=== PATIENT | female | born 1965 | race Caucasian/White ===

== ENCOUNTER 2024-05-07 12:02 | Emergency (ER) | payer OTHER, SELFPAY ==
[2024-05-07 12:25] VITALS: BP 183/111
[2024-05-07 14:09] VITALS: BP 162/87
--- NOTE | 2024-05-07 15:12 | ED.GENMED ---
History of Present Illness
General
Chief Complaint: Cold/Flu/URI Symptoms
Source: patient and spouse
Exam Limitations: none
Time Seen by Provider: 05/07/24 14:27
History of Present Illness
History of Present Illness:
Patient diagnosed with RSV at primary care physician office 3 days ago, presents to ED secondary to persistent cough and shortness of breath, along with decreased appetite despite utilizing [id number]-qxknoth medications along with prescribed cough
medication. Denies fever or chills. Denies chest pain. Denies abdominal pain. Denies nausea, vomiting, or diarrhea. Denies sore throat. Denies dizziness. Denies headache. Denies rash. Patient's granddaughter was diagnosed with RSV 10 days
ago and was admitted at [facility].
Past History
Past History
ED Past Medical History: HTN
ED Past Surgical History: Cholecystectomy
Patient has exhibited threatening behavior?: No
Social History
Personal:
Living: with family
Employment: Employed
Review of Systems
Review of Systems
Allergies reviewed?: Yes
All Other Systems: ROS reviewed and negative except as documented in HPI and ROS
Constitutional: Reports no symptoms; Denies fever or chills
Respiratory: Reports cough and trouble breathing
Cardiac: Reports no symptoms
ABD/GI: Reports no symptoms; Denies vomiting or diarrhea
Musculoskeletal: Reports no symptoms
Skin: Reports no symptoms
Neurological: Reports no symptoms
Phy Exam
Physical Exam
Physical Exam:
Physical Exam
General: mild distress, not acutely ill. afebrile
Head: nc/at. eomi
Neck: supple. no meningeal signs.
Heart: s1/s2 regular rate and rhythm, no murmur. equal radial pulses.
Lungs: mild respiratory distress. clear bilaterally
Abdomen: normal bowel sounds. not tender.
Neuro: alert and oriented x 3. no focal neurological deficits
Skin: no rash
Psychiatric: well kept. interactive and cooperative
Extremities: no edema. no calf tenderness.
Course
Orders/Labs/Results
Orders:
Orders
05/07/24 12:04
EKG [Electrocardiogram (*1)] Urgent
Reason for Study: Tachycardia
EKG- Treatment ONCE
05/07/24 12:28
CR Chest - 2 Views Urgent
Comment:
Reason For Exam: cough/congestion
Vital Signs
Initial and Last Documented VS:
Initial Vital Signs
Temp Pulse Resp BP Pulse Ox
98.1 F 108 20 183/111 95
05/07/24 12:25 05/07/24 12:25 05/07/24 12:25 05/07/24 12:25 05/07/24 12:25
Last Documented Vital Signs
Temp Pulse Resp BP Pulse Ox
98.1 F 108 20 162/87 95
05/07/24 12:25 05/07/24 12:25 05/07/24 12:25 05/07/24 14:09 05/07/24 12:25
MDM/Problems Addressed
MDM/Problems Addressed:
History exam consistent with respiratory symptoms, secondary to recently confirmed RSV. Fortunately, patient is afebrile, hemodynamically stable, without acute respiratory distress. In addition, despite decreased appetite, clinically, patient is
without any evidence of dehydration. As such, patient will be discharged home in stable condition, to the care of her spouse, with recommendation to continue hydration at home along with symptomatic treatment via decongestant/cough medication.
Advised return to ED with worsening symptoms, i.e. increased work of breathing/vomiting/inability to eat/mental status change.
*Critical Care Note
Total Time (30-74mins, 75-104mins- exclusive of procedures): Not Applicable
ED Attending Note
-
Portions of this chart may have been created with voice recognition software.� Occasional wrong word or��sound alike� substitutions may have occurred due to the inherent limitations of voice recognition software.
Discharge Plan
Departure
Patient Disposition: Home (Routine Discharge)
Date of Disposition: 05/07/24
Time of Disposition: 15:13
Patient with high blood pressure during this ER visit?: Yes
Condition: Fair
Discharge Problem:
Respiratory syncytial virus (RSV)
Instructions: RSV in adults - Discharge instructions
Prescriptions:
No Action
cyclobenzaprine 10 MG tablet
10 mg PO HSPRN PRN (Reason: muscle spasms, tightness) Qty: 12 0RF
cyclobenzaprine 5 mg tablet
5 mg PO TID PRN (Reason: muscle spasm) Qty: 10 0RF
lidocaine [Lidoderm] 5 % adhesive patch,medicated
1 patch topical DAILY Qty: 15 0RF
Referrals:
Daniel Huertas, DO [Family Provider] -
Activity Restrictions/Additional Instructions:
As discussed, please follow-up with your primary care physician with any further concerns.
Interventions
Interventions:
*Risk Screen - Suicide Last Done: 05/07/24 14:07
*General Assessment Last Done: 05/07/24 12:25
*Neglect/Abuse Screening Last Done: 05/07/24 14:07
*Nursing Disposition Last Done: 05/07/24 15:23
ED- Pulmonary Assessment Last Done: 05/07/24 14:07
Discharge Date and Time
Discharge Date/Time: 05/07/24 15:23
Print Language: UZBEK
== END 2024-05-07 15:23 | disposition home or self-care (01) ==
LOC: EMR 12:02
PROVIDERS: EMERGENCY PHYSICIAN Emergency Medicine; FAMILY PHYSICIAN Family Medicine
DX: J06.9 Acute upper respiratory infection, unspecified (principal); B97.4 Respiratory syncytial virus as the cause of diseases classified elsewhere; I10 Essential (primary) hypertension; Z90.49 Acquired absence of other specified parts of digestive tract
CPT/HCPCS: 99284; 71046; 93005

== ENCOUNTER 2024-10-13 16:07 | Emergency (ER) | payer BC, SELFPAY ==
[2024-10-13 16:44] LABS: % Eosinophils 0.2 % (0-6); % Immature Granulocytes 0.4 % (0-0.5); % Lymphocytes 21.1 % (20.5-51.1); % Monocytes 4.9 % (1.7-9.3); % Neutrophils 72.4 % (42.2-75.2); Absolute Basophils 0.1 10^3/uL (0-0.2); Absolute Immature Granulocytes 0.1 10^3/uL (0-0.05); Absolute Lymphocytes 2.9 10^3/uL (1.2-3.4); Absolute Monocytes 0.7 10^3/uL (0.1-0.6); Absolute Neutrophils 10.1 10^3/uL (1.4-6.5); Hemoglobin 15.8 g/dL (12.0-16.0); Mean Corp Hgb Conc. 34.3 g/dL (33.0-37.0); Mean Corpuscular Volume 81.4 fL (81.0-99.0); Mean Platelet Volume 9.8 fL (7.4-10.4); Nucleated Red Blood Cells % 0 %; Platelet Count 364 10^3/uL (130-400); Red Blood Cell Count 5.65 10^6/uL (4.20-5.40); Red Cell Dist. Width 13.5 % (11.5-14.5); White Blood Cell Count 13.9 10^3/uL (4.8-10.8)
[2024-10-13 17:02] LABS: ALT (SGPT) 47 U/L (0-35); AST (SGOT) 36 U/L (14-36); Albumin 4.7 g/dl (3.5-5.0); Alkaline Phosphatase 67 U/L (38-126); Blood Urea Nitrogen 22 mg/dl (7-17); Calcium 10.9 mg/dl (8.4-10.2); Carbon Dioxide 28 mmol/L (22-30); Chloride 105 mmol/L (98-107); Glucose 126 mg/dl (70-99); Lipase 47 U/L (23-300); Potassium 3.9 mmol/L (3.5-5.1); Sodium 141 mmol/L (135-145); Total Bilirubin 0.6 mg/dl (0.2-1.3); Total Protein 7.8 g/dl (6.3-8.2); eGFR > 60.00
--- NOTE | 2024-10-13 18:58 | ED.GENMED ---
History of Present Illness
General
Chief Complaint: Rectal Bleeding
Source: patient
Exam Limitations: none
Time Seen by Provider: 10/13/24 18:36
Nursing documentation reviewed up to this point in time: agreed with
History of Present Illness
History of Present Illness:
The patient is a 59-year-old female who presented with abdominal pain and rectal bleeding. Symptoms began today at approximately 10:00 AM while she was at work. She experienced a bowel movement accompanied by abdominal discomfort. Describing the
pain as diffuse across the abdomen, she spent a prolonged period in the bathroom without inspecting the stool at that time. Upon returning home around noon, she noticed a small bowel movement with blood present. The patient reported the blood as
reddish, and she took a photo of it for reference. She denied any recent international travel, new food exposures, or vomiting but mentioned feeling very nauseous. A low fever was suspected but not measured. She had a history of diverticulitis more
than 30 years ago, but denies other lower gastrointestinal issues.
The patient expressed concern about the potential link between her symptoms and E. coli, having lost her mother to E. coli two years ago. She is currently on semaglutide and inquires about the medications role in her gastrointestinal symptoms.
Recent lab work indicated a marginally elevated white blood cell count, something observed in her past medical history. No other significant medical problems were noted.
Past History
Past History
ED Past Medical History: HTN
ED Past Surgical History: Cholecystectomy
Patient has exhibited threatening behavior?: No
Social History
Personal:
Living: with family
Employment: Employed
Review of Systems
Review of Systems
Allergies reviewed?: Yes
All Other Systems: ROS reviewed and negative except as documented in HPI and ROS
Phy Exam
Physical Exam
Physical Exam:
GENERAL: Alert , in no apparent distress
EYE: pupils equal and reactive
NECK: Supple, no significant adenopathy.
ENT: o/p clr, mmm.
CARDIAC: Regular rate and rhythm .
LUNGS: Clear breath sounds bilaterally, no acute respiratory distress, no wheezes/rales/rhonchi
ABDOMEN: Vague lower abdominal pain to palpation soft, no r/g, no cvat
NEUROLOGICAL: Alert and oriented, no focal neuro deficits
SKIN: Warm and dry, skin intact.
MUSCULOSKELETAL: No edema, well perfused.
PSYCH: Normal and appropriate interaction.
Course
Orders/Labs/Results
Orders:
Orders
10/13/24 16:31
Type And Crossmatch [Type+Screen] Urgent
Complete Blood Count/With Diff Urgent
Comprehensive Metabolic Panel Urgent
Lipase Urgent
10/13/24 18:58
CT Abd/Pel (IV only)-DH only Urgent
Comment:
Reason For Exam: lower abd pain hematochezia
Urinalysis Reflex To Culture Urgent
10/13/24 19:34
ABO2 Routine
BBK Wristband Number:
Associate notified that ABO2 has been ordered: Y
Date: 10/13/24
Time: 16:44
Beauty Culture Teacher ID: [id number]
Lactic Acid Urgent
10/13/24 19:45
Ondansetron Injectable [Zofran] 4 mg .ROUTE .STK-MED ONE
10/13/24 19:46
Ondansetron Injectable [Zofran] 4 mg IV NOW STA
10/13/24 22:04
MetroNIDAZOLE [Flagyl] 500 mg PO NOW STA
10/13/24 22:06
Ciprofloxacin HCl [Cipro] 500 mg PO ONCE ONE
Abnormal Lab Results
10/13/24
16:31
WBC 13.9 H 10^3/uL
(4.8-10.8)
RBC 5.65 H 10^6/uL
(4.20-5.40)
Abs Immat Gran (auto) 0.1 H 10^3/uL
(0-0.05)
Absolute Neuts (auto) 10.1 H 10^3/uL
(1.4-6.5)
Absolute Monos (auto) 0.7 H 10^3/uL
(0.1-0.6)
BUN 22 H mg/dl
(7-17)
Glucose 126 H mg/dl
(70-99)
Calcium 10.9 H mg/dl
(8.4-10.2)
ALT 47 H U/L
(0-35)
10/13/24 16:31
10/13/24 16:31
Vital Signs
Initial and Last Documented VS:
Initial Vital Signs
Temp Pulse Resp Pulse Ox
98.5 F 101 16 98
10/13/24 16:23 10/13/24 16:23 10/13/24 16:23 10/13/24 16:23
Last Documented Vital Signs
Temp Pulse Resp BP Pulse Ox
98.5 F 92 16 190/107 98
10/13/24 16:23 10/13/24 21:30 10/13/24 21:30 10/13/24 19:16 10/13/24 19:16
MDM/Problems Addressed
MDM/Problems Addressed:
- Order a CT scan of the abdomen to assess for possible colitis or ischemic bowel pathology.
- Administer antiemetic treatment such as ondansetron (Zofran).
- Offer IV fluids for hydration if needed.
- Conduct a rectal examination with a crusher and binder operator present to inspect for hemorrhoids or fissures.
The Differential Diagnosis includes, in no particular order and is not limited to:
1. Diverticulitis
2. Colitis (infectious or inflammatory)
3. Gastrointestinal bleeding due to hemorrhoids
4. Ischemic bowel disease
5. Semaglutide-induced gastrointestinal disturbance
6. Gastroenteritis (bacterial or viral)
7. Peptic ulcer disease
8. Hemorrhoidal bleeding
9. Colon polyps or malignancy
10. Gastrointestinal infection with E. coli or other pathogens.
CT scan showing potential diverticulitis colitis. Plan to treat with antibiotics otherwise no evidence of significant hemorrhage hemoglobin normal. Advised for outpatient follow-up. Return precautions given.
*Pulse Oximetry
Patient hypoxic: no (98)
*Critical Care Note
Total Time (30-74mins, 75-104mins- exclusive of procedures): Not Applicable
ED Attending Note
-
Portions of this chart may have been created with voice recognition software.� Occasional wrong word or��sound alike� substitutions may have occurred due to the inherent limitations of voice recognition software.
Discharge Plan
Departure
Patient Disposition: Home (Routine Discharge)
Date of Disposition: 10/13/24
Time of Disposition: 22:07
Patient with high blood pressure during this ER visit?: Yes
Condition: Good
Covid-19: Not Applicable
Discharge Problem:
Diverticulitis
Instructions: Diverticulitis - Discharge instructions, BLOOD PRESSURE
Prescriptions:
New
ciprofloxacin HCl 500 mg tablet
500 mg PO Q12H 7 Days Qty: 14 0RF
metronidazole 500 mg tablet
500 mg PO BID 7 Days Qty: 14 0RF
No Action
cyclobenzaprine 10 MG tablet
10 mg PO HSPRN PRN (Reason: muscle spasms, tightness) Qty: 12 0RF
cyclobenzaprine 5 mg tablet
5 mg PO TID PRN (Reason: muscle spasm) Qty: 10 0RF
lidocaine [Lidoderm] 5 % adhesive patch,medicated
1 patch topical DAILY Qty: 15 0RF
Referrals:
Daniel Huertas DO [Family Provider, Family Practice]
Activity Restrictions/Additional Instructions:
You came to the emergency department today with concerns of abdominal pain. Here you had a reassuring assessment. You are found to have diverticulitis. Please take the prescribed antibiotics and follow-up closely with your primary care doctor or
GI. Return for any worsening, new or concerning symptoms.
Interventions
Interventions:
*Risk Screen - Suicide Last Done: 10/13/24 19:15
*General Assessment Last Done: 10/13/24 19:15
*ED- Fall Risk Assessment Last Done: 10/13/24 19:15
*ED COVID-19 Vaccine History Last Done: 10/13/24 19:15
WC-Ugxndv-Rzkabkhnji Assessment Last Done: 10/13/24 19:18
ED- Cardiac Assessment Last Done: 10/13/24 19:18
ED- Pulmonary Assessment Last Done: 10/13/24 19:18
Discharge Date and Time
Print Language: CROATIAN
--- NOTE | 2024-10-13 19:08 | EDRN ---
This RN entered pt.'s room to complete provider's orders, but pt. in restroom. Pt. told she needs a urine sample, but states, 'I just went, next time'. Pt. aware of need for additional labs/IV access, but states she will ring call abdi when she is
ready.
[2024-10-13 19:16] VITALS: BP 190/107
--- NOTE | 2024-10-13 19:20 | EDRN ---
Pt. extremely hesitant to have blood pressure taken r/t tightness of BP cuff. This RN explained that w/ GI bleeding, hypotension can occur and educated about the important of obtaining a BP. Pt. agreed to let RN take a blood pressure, pt.
hypertensive, not hypotensive. Provider aware.
[2024-10-13] MEDS: ZOFRAN 4 MG IV (19:46)
[2024-10-13] MEDS: CIPRO 500 MG PO (22:17)
[2024-10-13] MEDS: FLAGYL 500 MG PO (22:17)
== END 2024-10-13 22:26 | disposition home or self-care (01) ==
LOC: EMR 16:07
PROVIDERS: Emergency Medicine; Physician Assistant; EMERGENCY PHYSICIAN Emergency Medicine; FAMILY PHYSICIAN Family Medicine
DX: K57.32 Diverticulitis of large intestine without perforation or abscess without bleeding (principal); I10 Essential (primary) hypertension; Z90.49 Acquired absence of other specified parts of digestive tract
CPT/HCPCS: 96374; 99284; 74177; 80053; 83605; 83690; 85025; 86850; 86900; 86901; Q9967

== ENCOUNTER 2025-02-22 21:31 | Emergency (ER) | payer BC, SELFPAY ==
[2025-02-22 21:34] VITALS: BP 181/96
[2025-02-22 21:58] LABS: Hematocrit 46.0 % (37.0-47.0); Hemoglobin 14.8 g/dL (12.0-16.0); Mean Corp Hgb Conc. 32.2 g/dL (33.0-37.0); Mean Corpuscular Volume 87.5 fL (81.0-99.0); Nucleated Red Blood Cells % 0 %; Platelet Count 374 10^3/uL (130-400); Red Cell Dist. Width 14.3 % (11.5-14.5)
[2025-02-22 22:07] LABS: ALT (SGPT) 28 U/L (0-35); AST (SGOT) 24 U/L (14-36); Albumin 4.6 g/dl (3.5-5.0); Alkaline Phosphatase 62 U/L (38-126); Blood Urea Nitrogen 20 mg/dl (7-17); Calcium 10.6 mg/dl (8.4-10.2); Carbon Dioxide 30 mmol/L (22-30); Chloride 104 mmol/L (98-107); Glucose 139 mg/dl (70-99); Potassium 3.6 mmol/L (3.5-5.1); Sodium 136 mmol/L (135-145); Total Protein 7.8 g/dl (6.3-8.2); eGFR > 60.00
--- NOTE | 2025-02-23 01:00 | ED.GENMED ---
History of Present Illness
General
Chief Complaint: Skin Problem
Source: patient
Exam Limitations: none
Time Seen by Provider: 02/23/25 00:57
Nursing documentation reviewed up to this point in time: agreed with
History of Present Illness
History of Present Illness:
Note:
CHIEF COMPLAINT(S)
Painful skin lesion on the left leg.
HISTORY OF PRESENT ILLNESS
The patient is a 59-year-old female presenting with a painful skin lesion on her left leg. The lesion appeared approximately six days ago and has been progressively darkening and becoming more tender and more swollen. The patient notes that she
initially thought it was an ingrown hair and has been photographing the lesion daily to track any changes. She denies fever but reports tenderness and warmth at the site. She has observed a small black dot in the center of the lesion that appeared a
few days after onset. The first day of the lesion, she saw her vamp seamer who thought it could be Lyme disease and started her on doxycycline. She has been treated with doxycycline for five days with no perceived improvement.
She reports experiencing sporadic headaches, which she associates with infrequent hair washing. Contrary to triage note, she has not had any fevers and has felt well otherwise.
The patient notes having a pet dog that frequently sits on her lap, but denies extensive outdoor activities. She recalls possibly noticing the lesion after feeling like she had a pimple, but does not remember experiencing a specific bite event.
There was discussion around a potential spider encounter at work among colleagues, but no direct recollection of a bite.
Upon examination, the lesion is described as painful, with the suspicion of an underlying abscess possibly requiring aspiration. The patient has tried using warm compresses, observing slight relief, but the lesion continued to enlarge. The lesion
radiates heat, particularly noticeable when wearing slacks.
The patient has a follow up with her vamp seamer later today. She denies abdominal pain, chest pain, nausea, vomiting, shortness of breath.
PHYSICAL EXAM
General: Alert, no acute distress.
Skin: Warm 3 cm by 4 cm fluctuant mass noted to left lateral thigh with black head with surrounding erythema
Head: Normocephalic, atraumatic.
Neck: Supple, trachea midline.
Eye, Ears, Nose, and Throat: Oral mucosa moist.
Cardiovascular: Regular rate and rhythm, no murmurs. Normal peripheral perfusion, No edema.
Respiratory: Respirations are non-labored. No wheezes, rales, or rhonchi
Gastrointestinal: Abdomen nondistended.
Back: Normal range of motion, Normal alignment.
Musculoskeletal: Normal range of motion, normal strength.
Neurological: Alert and oriented to person, place, time, and situation, No focal neurological deficit observed.
Psychiatric: Cooperative, appropriate mood & affect.
PLAN
1. Consider needle aspiration or incision and drainage of the lesion to assess and possibly drain any purulent collection.
2. Continue with hot compresses to potentially aid in the draining process, monitor for worsening symptoms.
3. Await Lyme disease test results to rule out tick-borne etiology.
4. Follow up for further evaluation depending on symptom progression and test outcomes.
DIFFERENTIAL DIAGNOSIS
The Differential Diagnosis includes, in no particular order and is not limited to:
1. Bacterial skin infection
2. Abscess formation
3. Spider bite or other arthropod envenomation
4. Cellulitis
5. Lyme disease
6. Infected cyst
7. Allergic reaction
8. Contact dermatitis
9. Folliculitis
10. Dermatological malignancy (less likely but to be ruled out if no improvement with treatment)
Disposition:
SUMMARY OF ENCOUNTER
A 50-year-old female presented to the emergency department with a painful mass on her left lateral thigh. Previously, her vamp seamer suspected Lyme disease, but the patients tests were negative. Upon examination, the mass appeared consistent with
an abscess. The abscess was incised and drained, yielding a significant amount of purulent fluid, which was sent for culture. The wound was left open to ensure proper drainage.
ASSESSMENT
The current diagnosis includes a probable bacterial skin infection leading to abscess formation. The previous suspicion of Lyme disease was not confirmed by tests.
PLAN
1. The lesion has been incised and drained.
2. Switch to clindamycin for antibiotic therapy to target possible bacterial infection.
3. Monitor for development of fever, spreading rash, or increasing redness.
4. Patient is stable for discharge and has a follow-up appointment with her vamp seamer.
PATIENT EDUCATION AND COUNSELING
The patient was instructed on wound care, signs of infection to look for (such as fever, spreading of rash, or increased redness), and the importance of follow-up with her vamp seamer.
FOLLOW-UP INSTRUCTIONS
The patient was advised to follow up with her vamp seamer as scheduled later today.
MEDICATION RECONCILIATION
Switch from doxycycline to clindamycin was discussed for ongoing antibacterial treatment.
MEDICAL DECISION MAKING
-Complexity of Data Reviewed: The differential diagnosis includes bacterial skin infection, abscess formation, Lyme disease, cellulitis, and other potential dermatological issues.
-Data:
Category 1
- Testing Summary: Leukocytosis noted but likely related to current infection. CMP was unremarkable.
- Purulent fluid from abscess was cultured.
- Consultation with ED attending regarding plan of care, including switching antibiotics.
-Risk:
Prescription medication management involved switching to clindamycin for optimal coverage against skin infection.
DIAGNOSIS
- Bacterial skin infection with abscess (L02.419)
Past History
Past History
ED Past Medical History: HTN
ED Past Surgical History: Cholecystectomy
Patient has exhibited threatening behavior?: No
Social History
Personal:
Living: with family
Employment: Employed
Phy Exam
Physical Exam
Physical Exam:
see hpi
Course
Orders/Labs/Results
Orders:
Orders
02/22/25 21:42
CMP [Comprehensive Metabolic Panel] Urgent
Complete Blood Count/With Diff Urgent
Lyme Progressive Urgent
02/23/25 03:12
Wound Culture [Wound/Abscess/Other Culture] Urgent
EDMUND Source: Abscess
Specimen Description:
Date Specimen was Collected: 02/23/25
Time Specimen was Collected: 03:11
Abnormal Lab Results
02/22/25
21:42
WBC 16.6 H 10^3/uL
(4.8-10.8)
MCHC 32.2 L g/dL
(33.0-37.0)
Abs Immat Gran (auto) 0.1 H 10^3/uL
(0-0.05)
Absolute Neuts (auto) 9.0 H 10^3/uL
(1.4-6.5)
Absolute Lymphs (auto) 5.6 H 10^3/uL
(1.2-3.4)
Absolute Monos (auto) 1.3 H 10^3/uL
(0.1-0.6)
BUN 20 H mg/dl
(7-17)
Glucose 139 H mg/dl
(70-99)
Calcium 10.6 H mg/dl
(8.4-10.2)
02/22/25 21:42
02/22/25 21:42
Vital Signs
Initial and Last Documented VS:
Initial Vital Signs
Temp Pulse Resp BP Pulse Ox
98.4 F 87 18 181/96 97
02/22/25 21:34 02/22/25 21:34 02/22/25 21:34 02/22/25 21:34 02/22/25 21:34
Last Documented Vital Signs
Temp Pulse Resp BP Pulse Ox
98.4 F 78 16 160/90 97
02/22/25 21:34 02/23/25 04:01 02/23/25 04:01 02/23/25 04:01 02/23/25 04:01
Procedures
Incision/Drainage/Joint Aspiration
Left Lateral Thigh:
Anethesia: 1% Lidocaine with Epi
Preparation: cleaned with Betadine
Type of procedure: incise and drain
Nature of site: abscess
Description of abscess: greater than 3cm
Loculations broken up: No
How much fluid was obtained?: large amount
Fluid description: cloudy and purulent
Treatment: left open for drainage
*Pulse Oximetry
SaO2: 97
Oxygen Mode of Delivery: Room air
Patient hypoxic: no
*Critical Care Note
Total Time (30-74mins, 75-104mins- exclusive of procedures): Not Applicable
ED Attending Note
-
Portions of this chart may have been created with voice recognition software.� Occasional wrong word or��sound alike� substitutions may have occurred due to the inherent limitations of voice recognition software.
Discharge Plan
Departure
Patient Disposition: Home (Routine Discharge)
Date of Disposition: 02/23/25
Time of Disposition: 03:40
Patient with high blood pressure during this ER visit?: Yes
Condition: Good
Discharge Problem:
Thigh abscess, Cellulitis
Instructions: Cellulitis (Skin Infection), Adult (DC), BLOOD PRESSURE, Skin Abscess
Prescriptions:
New
clindamycin HCl [Cleocin HCl] 300 mg capsule
300 mg PO TID 5 Days Qty: 15 0RF
No Action
cyclobenzaprine 10 MG tablet
10 mg PO HSPRN PRN (Reason: muscle spasms, tightness) Qty: 12 0RF
cyclobenzaprine 5 mg tablet
5 mg PO TID PRN (Reason: muscle spasm) Qty: 10 0RF
lidocaine [Lidoderm] 5 % adhesive patch,medicated
1 patch topical DAILY Qty: 15 0RF
ciprofloxacin HCl 500 mg tablet
500 mg PO Q12H 7 Days Qty: 14 0RF
metronidazole 500 mg tablet
500 mg PO BID 7 Days Qty: 14 0RF
Referrals:
Daniel Huertas DO [Family Provider, Family Practice]
Activity Restrictions/Additional Instructions:
Please stop taking doxycycline. Clindamycin has been sent to your pharmacy. Please take one tablet 3 times daily for 5 days.
Please change dressing once daily. You can use warm compress and sitz bath's to help facilitate drainage. Please continue to monitor your symptoms. Please follow-up with your dermatology appointment today.
You can use non-adherent pads with kyrlex wrap. Wound culture has been sent.
Interventions
Interventions:
*Risk Screen - Suicide Last Done: 02/22/25 21:34
*General Assessment Last Done: 02/22/25 21:34
*Neglect/Abuse Screening Last Done: 02/23/25 03:00
*ED- Fall Risk Assessment Last Done: 02/22/25 21:34
*ED COVID-19 Vaccine History Last Done: 02/22/25 21:34
*ED Influenza Vaccine History Last Done: 02/22/25 21:34
*Nursing Disposition Last Done: 02/23/25 04:01
ED-Skin Assessment Last Done: 02/23/25 00:41
Discharge Date and Time
Discharge Date/Time: 02/23/25 04:03
Print Language: ITALIAN
--- NOTE | 2025-02-23 02:27 | DOWNTIME ---
There was a [employer] Client Brick [employer]orter Downtime on 02/23/2025 from 0100 to 02/23/2025 at 0215. Downtime documentation of patient's care, including medication administrations, has been reconciled in the electronic record per guidelines. Refer to the
patient's paper chart under the miscellaneous tab to see printed paper medication records and downtime forms.
[2025-02-23 03:29] VITALS: BP 160/90
[2025-02-23 04:01] VITALS: BP 160/90
== END 2025-02-23 04:03 | disposition home or self-care (01) ==
LOC: EMR 21:31
PROVIDERS: Emergency Medicine; EMERGENCY PHYSICIAN Student in an Organized Health Care Education/Training Program; FAMILY PHYSICIAN Family Medicine
DX: L02.416 Cutaneous abscess of left lower limb (principal); L03.116 Cellulitis of left lower limb; I10 Essential (primary) hypertension
CPT/HCPCS: 99283; 10060; 80053; 85025; 86618; 87070; 87205